=== PATIENT | female | born 1980 | race Two or more races ===

== ENCOUNTER 2019-06-20 15:28 | Emergency (ER) | payer SELFPAY ==
[~2019-06-20] VITALS: Ht 172.7 cm; Wt 113.0 kg
[~2019-06-20 15:28] MED LIST: HYDR-2761 PO; IBUP-1060 PO
[2019-06-20 16:18] LABS: BASO % 1 % (0-3); EOS # 0.1 x10^3/uL (0.0-0.7); EOS % 2 % (0-3); HEMATOCRIT 32.7 % (36.0-47.0); HEMOGLOBIN 10.7 g/dL (12.0-15.5); LYMPH # 2.5 x10^3/uL (1.0-4.8); LYMPH % 40 % (24-48); MEAN CORPUSCULAR HEMOGLOBIN 27 pg (25-35); MEAN CORPUSCULAR HGB CONC 33 g/dL (31-37); MEAN CORPUSCULAR VOLUME 82 fL (79-100); MONO # 0.3 x10^3/uL (0.0-1.1); MONO % 6 % (0-9); NEUT # 3.2 x10^3/uL (1.8-7.7); NEUT % 52 % (31-73); PLATELET COUNT 262 x10^3/uL (140-400); RED BLOOD COUNT 4.01 x10^6/uL (3.50-5.40); RED CELL DISTRIBUTION WIDTH 15.2 % (11.5-14.5); WHITE BLOOD COUNT 6.1 x10^3/uL (4.0-11.0)
[2019-06-20 16:26] LABS: CREATININE 0.6 mg/dL (0.6-1.0); GFR 112.5; POTASSIUM 3.3 mmol/L (3.5-5.1)
[2019-06-20 16:29] LABS: PREG TEST PT QUAL NEGATIVE (NEG)
[2019-06-20 16:32] LABS: ALBUMIN 2.8 g/dL (3.4-5.0); ALBUMIN/GLOBULIN RATIO 0.7 (1.0-1.7); C-REACTIVE PROTEIN 13.8 mg/L (0-3.3); TOTAL BILIRUBIN 0.2 mg/dL (0.2-1.0); TOTAL PROTEIN 6.6 g/dL (6.4-8.2)
--- NOTE | 2019-06-20 17:03 | RAD ---
EXAM: CHEST AP ONLY INDICATION: Cough, shortness of breath.. TECHNIQUE: Single view COMPARISON: Abdomen and pelvis CT with IV contrast of May 06, 2008 FINDINGS: Heart size is upper normal. The great vessels appear unremarkable. There is no hilar or mediastinal mass. Lungs show engorgement of the central pulmonary vessels and low lung volumes. There is no pleural effusion or pneumothorax. There are no significant osseous abnormalities. IMPRESSION: Mild cardiomegaly and evidence of central pulmonary venous congestion. Electronically signed by: Dev Chou MD (06/20/2019 5:00 PM) [id number]
[2019-06-20] MEDS ORDERED: AZIT250T PO (17:18)
[2019-06-20] MEDS ORDERED: ALBU2.5V5 NEB (17:18)
--- NOTE | 2019-06-20 17:33 | PHYS DOC ---
Past Medical History Past Medical History: Diabetes-Type II, Hypertension Additional Past Medical Histor: gestational diabetes Past Surgical History: Cholecystectomy Smoking Status: Current Some Day Smoker Alcohol Use: Rarely Drug Use: None General Adult EDM: Chief Complaint: COUGH HPI: HPI: Patient is a 39 year old female who presents with with chest pain, cough, generally feeling unwell for the last 3 days. She states that this is progressively gotten worse. She has not tried anything at home for symptoms. She states she generally was well prior to this. She developed chest pain earlier today. She is worried about her heart. She has never had cardiac disease previously. She has no known medical problems. She is not sure she has been around anybody who is been ill. Review of Systems: Review of Systems: General: Reports fever, chills, sweats, fatigue Eyes: Denies drainage, blurred vision HENT: Denies sore throat reports rhinorrhea Respiratory: Reports cough, shortness of breath Cardiac: Denies edema, palpitations.reports chest pain GI: Denies abdominal pain, N/V MSK: Denies back pain, neck pain Skin: Denies rash, jaundice Neuro: Denies headache, dizziness Psychiatric: Denies SI/HI Heart Score: Risk Factors: Risk Factors: DM, Current or recent (<one month) smoker, HTN, HLP, family history of CAD, obesity. Risk Scores: Score 0 - 3: 2.5% MACE over next 6 weeks - Discharge Home Score 4 - 6: 20.3% MACE over next 6 weeks - Admit for Clinical Observation Score 7 - 10: 72.7% MACE over next 6 weeks - Early Invasive Strategies Allergies: Allergies: Allergies Coded Allergies Type Severity Reaction Last Updated Verified No Known Drug Allergies 07/02/15 No Physical Exam: PE: Constitutional: Well developed, well nourished, Cooperative, NAD, ill appearing HEENT: Normocephalic, atraumatic, oropharynx moist, EOMI, PERRL, no drainage from eyes, normal conjunctiva Neck: Supple, normal range of motion, no stridor Cardiovascular: RRR, 2+ radial pulses bilaterally, no edema Respiratory: Decreased breath sounds bilaterally, diffuse minimal crackles, no respiratory distress Abdomen: Soft, nontender, nondistended, no masses Skin: Warm, dry, intact Extremities: No obvious deformities Neurologic: Alert and Oriented x3, motor and sensory function grossly normal, no focal deficits Psychologic: Normal affect, normal judgment, normal mood. No SI/HI Current Patient Data: Labs: Laboratory Tests Test 06/20/19 16:05 White Blood Count 6.1 x10^3/uL (4.0-11.0) Red Blood Count 4.01 x10^6/uL (3.50-5.40) Hemoglobin 10.7 g/dL (12.0-15.5) L Hematocrit 32.7 % (36.0-47.0) L Mean Corpuscular Volume 82 fL (79-100) Mean Corpuscular Hemoglobin 27 pg (25-35) Mean Corpuscular Hemoglobin Concent 33 g/dL (31-37) Red Cell Distribution Width 15.2 % (11.5-14.5) H Platelet Count 262 x10^3/uL (140-400) Neutrophils (%) (Auto) 52 % (31-73) Lymphocytes (%) (Auto) 40 % (24-48) Monocytes (%) (Auto) 6 % (0-9) Eosinophils (%) (Auto) 2 % (0-3) Basophils (%) (Auto) 1 % (0-3) Neutrophils # (Auto) 3.2 x10^3/uL (1.8-7.7) Lymphocytes # (Auto) 2.5 x10^3/uL (1.0-4.8) Monocytes # (Auto) 0.3 x10^3/uL (0.0-1.1) Eosinophils # (Auto) 0.1 x10^3/uL (0.0-0.7) Basophils # (Auto) 0.0 x10^3/uL (0.0-0.2) D-Dimer (Maday) 0.88 ug/mlFEU (0.00-0.50) H Sodium Level 142 mmol/L (136-145) Potassium Level 3.3 mmol/L (3.5-5.1) L Chloride Level 106 mmol/L (98-107) Carbon Dioxide Level 29 mmol/L (21-32) Anion Gap 7 (6-14) Blood Urea Nitrogen 9 mg/dL (7-20) Creatinine 0.6 mg/dL (0.6-1.0) Estimated GFR (Cockcroft-Gault) 112.5 BUN/Creatinine Ratio 15 (6-20) Glucose Level 101 mg/dL (70-99) H Calcium Level 8.0 mg/dL (8.5-10.1) L Total Bilirubin 0.2 mg/dL (0.2-1.0) Aspartate Amino Transferase (AST) 14 U/L (15-37) L Alanine Aminotransferase (ALT) 24 U/L (14-59) Alkaline Phosphatase 113 U/L (46-116) Lactate Dehydrogenase 222 U/L (81-234) Troponin I Quantitative < 0.017 ng/mL (0.000-0.055) C-Reactive Protein, Quantitative 13.8 mg/L (0-3.3) H Total Protein 6.6 g/dL (6.4-8.2) Albumin 2.8 g/dL (3.4-5.0) L Albumin/Globulin Ratio 0.7 (1.0-1.7) L Procalcitonin < 0.10 ng/mL (0.00-0.10) Serum Test, Qualitative Negative (NEG) Laboratory Tests 06/20/19 16:05 Laboratory Tests 06/20/19 16:05 Vital Signs: Vital Signs Date Time Temp Pulse Resp B/P (MAP) Pulse Ox O2 Delivery O2 Flow Rate FiO2 06/20/19 16:00 98.3 68 16 137/84 (101) 100 Room Air 98.3 EKG: EKG: [] Radiology/Procedures: Radiology/Procedures: [] Course & Med Decision Making: Course & Med Decision Making Pertinent Labs and Imaging studies reviewed. (See chart for details) Patient is a 39-year-old female who presents the emergency room complaining of chest pain, shortness of breath, cough. Patient is generally ill-appearing but is not in any respiratory distress. Patient's presentation is concerning for the novel coronavirus 19. Wrist stratifying labs were ordered. Patient has some vascular congestion on her chest x-ray. This is more likely to be due to a typical pneumonia and then cardiac disease. Patient has no history of cardiac disease and has no reason to have sudden onset heart failure. She has normal stable vitals at this time. While it is possible that the patient may have respiratory distress in the future if she does have the coronavirus at this time patient does not meet inpatient criteria. I have discussed with her that it is possible that she may develop worsening shortness of breath and at that time she should return to the emergency room. Patient states her understanding. We have also discussed the importance of quarantine. I have discussed with her that this includes going to grocery stores, gas stations, pharmacies, family homes. Patient will be put on antibiotics and an inhaler. Dragon Disclaimer: Dragon Disclaimer: This electronic medical record was generated, in whole or in part, using a voice recognition dictation system. Departure Departure Impression: Primary Impression: Chest pain Additional Impression: Coronavirus infection Disposition: HOME/RESIDENCE PRIOR TO ADM Condition: STABLE Patient Instructions: Shortness of Breath, [id number] Additional Instructions: You were seen today for chest pain and cough. You likely have coronavirus. We recommend that you self quarantine for the next 14 days. Please do not go to grocery stores, gas stations, work, friends/family homes. If you develop severe shortness of breath in a way that you can't walk from one room to another you should return to the Emergency Room. If you have high fevers not controlled with ibupofen or tylenol you should return. If you have any other concerns you should return to the Emergency Room. Scripts Azithromycin (ZITHROMAX) 250 Mg Tablet 1 PKG PO UD, #6 TAB Prov: RADHA GRISSOM MD 06/20/19 Albuterol Sulfate (ALBUTEROL SULFATE NEB SOLN) 2.5 Mg/3 Ml Vial.neb 1 VIAL NEB Q6HRS PRN for SHORTNESS OF BREATH for 10 Days, #25 VIAL 0 Refills Prov: RADHA GRISSOM MD 06/20/19 RADHA GRISSOM MD Jun 20, 2019 17:33
[2019-06-20 17:53] VITALS: BP 144/91
== END 2019-06-20 18:19 | disposition home or self-care (01) ==
LOC: ER 15:28
DX: R07.89 Other chest pain (principal); R05 Cough; R50.9 Fever, unspecified; J34.89 Other specified disorders of nose and nasal sinuses; E11.9 Type 2 diabetes mellitus without complications; I10 Essential (primary) hypertension; F17.200 Nicotine dependence, unspecified, uncomplicated; Z90.49 Acquired absence of other specified parts of digestive tract; Z20.818 Contact with and (suspected) exposure to other bacterial communicable diseases
CPT/HCPCS: 36415; 71045; 80053; 83615; 83880; 84145; 84484; 84703; 85025; 85379; 86140; 99284